=== PATIENT | male | born 1985 | race African-American/Black ===

== ENCOUNTER 2017-05-16 11:14 | Emergency (ER) | payer MEDICAID, OTHER ==
[~2017-05-16] VITALS: Ht 177.8 cm; Wt 64.0 kg
[2017-05-16] MEDS ORDERED: KETOROLAC 60MG/2ML VIAL IM ONE (15:00)
[2017-05-16 15:30] VITALS: BP 120/66
== END 2017-05-16 16:23 | disposition home or self-care (01) ==
LOC: ER 11:26
DX: R51 Headache (principal); F17.210 Nicotine dependence, cigarettes, uncomplicated; F12.10 Cannabis abuse, uncomplicated
CPT/HCPCS: 96372; 99283; J1885